=== PATIENT | male | born 1985 | race Caucasian/White ===

== ENCOUNTER 2017-01-19 21:14 | Emergency (ER) | payer MEDICAID ==
[~2017-01-19] VITALS: Ht 172.7 cm; Wt 88.0 kg
[2017-01-19 22:54] VITALS: BP 133/76
[2017-01-19] MEDS ORDERED: BACITRACIN ZINC OINT UDPKT TOP ONE (23:00)
== END 2017-01-19 23:53 | disposition home or self-care (01) ==
LOC: ER 22:04
DX: S59.912A Unspecified injury of left forearm, initial encounter (principal); S29.9XXA Unspecified injury of thorax, initial encounter; F12.10 Cannabis abuse, uncomplicated; F17.200 Nicotine dependence, unspecified, uncomplicated; X58.XXXA Exposure to other specified factors, initial encounter; Y93.89 Activity, other specified; Y99.8 Other external cause status; Y92.89 Other specified places as the place of occurrence of the external cause
CPT/HCPCS: 99283; Z7610